=== PATIENT | female | born 1985 | race Caucasian/White ===

== ENCOUNTER 2018-02-04 08:04 | Day surgery (SDC) | payer OTHER ==
[~2018-02-04] VITALS: Ht 182.9 cm; Wt 117.9 kg
[~2018-02-04 08:04] MED LIST: ADVIL,NUPRIN,M200 MG PO; MULTIVITAMIN1 EAC2 PO; TYLENOL REGULA325 MG PO
[2018-02-04] MEDS ORDERED: ROBITUSSIN COU PO (08:26)
[2018-02-04 08:41] VITALS: BP 131/82
[2018-02-04 14:15] VITALS: BP 116/60
[2018-02-04 15:30] VITALS: BP 128/57
== END 2018-02-04 15:45 | disposition home or self-care (01) ==
LOC: SDC 08:04
DX: M50.122 Cervical disc disorder at C5-C6 level with radiculopathy (principal); Z88.0 Allergy status to penicillin
CPT/HCPCS: 72020; 76000; C1713; J1170; J2250; J2405; Q0175; S0020